=== PATIENT | female | born 1980 | race Two or more races ===

== ENCOUNTER 2016-08-21 13:51 | Outpatient (CLI) | payer OTHER | END 2016-08-21 13:52 | disposition home or self-care (01) | DX: R10.84 Generalized abdominal pain (principal) ==

== ENCOUNTER 2016-08-21 16:01 | Outpatient (CLI) | payer OTHER | END 2016-08-21 16:02 | disposition home or self-care (01) | DX: R07.82 Intercostal pain (principal) ==

== ENCOUNTER 2016-08-24 12:52 | Outpatient (CLI) | payer OTHER | END 2016-08-24 12:53 | disposition home or self-care (01) | DX: R10.11 Right upper quadrant pain (principal) ==

== ENCOUNTER 2018-02-26 07:46 | Outpatient (CLI) | payer OTHER ==
--- NOTE | 2018-02-26 09:36 | Ultrasound Report ---
Procedure Date: 02/26/2018 Accession Number: [id number] / [id number] Procedure: US - Abdomen Complete CPT Code: FULL RESULT: EXAM: Abdomen Complete DATE: 02/26/2018 8:55 AM CLINICAL HISTORY: RECURRENT RIGHT UPPER QUADRANT ABDOMEN PAIN COMPARISON: Abdominal ultrasound 08/24/2016. TECHNIQUE: Real-time scanning was performed with static images obtained. FINDINGS: Liver: The liver is echogenic in keeping with parenchymal disease such as steatosis. The liver measures at least 15.4 cm. Main portal vein flow: Hepatopetal. Gallbladder: Surgically absent. Biliary System: Common bile duct measures 5 mm. No intrahepatic or extrahepatic ductal dilatation. Pancreas: Visualized portion is unremarkable. Kidneys: Right: 10.2 cm longitudinally. Normal. No contour-deforming mass, stones, or hydronephrosis. Left: 11.3 cm longitudinally. Normal. No contour-deforming mass, stones, or hydronephrosis. Spleen: 10.0 cm. Normal in size and echotexture. Aorta and Inferior Vena Cava: Unremarkable. IMPRESSION: Echogenic liver parenchyma, likely hepatic steatosis. [facility]
== END 2018-02-26 07:47 | disposition home or self-care (01) ==
LOC: DI 07:46
PROVIDERS: ATTEND Nurse Practitioner Family
DX: R10.11 Right upper quadrant pain (principal)
CPT/HCPCS: 76700